=== PATIENT | female | born 1940 | race Caucasian/White ===

== ENCOUNTER → 2016-12-08 | Outpatient (CLI) | payer MEDICARE, BC ==
--- NOTE | 2016-12-08 10:33 | KCIC ---
DATE: 12/08/2016 EXAM: MAMMO FELICITAS SCREENING BILATERAL HISTORY: Routine screening COMPARISON: 12/08/2015 This study was interpreted with the benefit of Computerized Aided Detection (CAD). The breast parenchyma is heterogeneously dense, which could reduce sensitivity of mammography. Breast parenchyma level C. FINDINGS: 2-D and 3-D tomosynthesis imaging was performed in CC and MLO projections. No new or enlarging breast densities are seen. Scattered benign type calcifications are again noted. No suspicious microcalcifications have developed. IMPRESSION: Stable mammograms without evidence of malignancy. BI-RADS CATEGORY: 2 BENIGN FINDING(S) RECOMMENDED FOLLOW-UP: 12M 12 MONTH FOLLOW-UP PQRS compliance statement: Patient information was entered into a reminder system with a target due date for the next mammogram. Mammography is a sensitive method for finding small breast cancers, but it does not detect them all and is not a substitute for careful clinical examination. A negative mammogram does not negate a clinically suspicious finding and should not result in delay in biopsying a clinically suspicious abnormality. "Our facility is accredited by the [employer] Mammography Program."
== END | disposition home or self-care (01) ==
LOC: KCIC MAMMO 07:55
PROVIDERS: ATTEND Internal Medicine
DX: Z12.31 Encounter for screening mammogram for malignant neoplasm of breast (principal)
CPT/HCPCS: 77063; G0202; 77067

== ENCOUNTER → 2017-12-19 | Outpatient (CLI) | payer MEDICARE, BC ==
--- NOTE | 2017-12-19 17:14 | KCIC ---
Bilateral digital screening mammograms with 3-D tomosynthesis: Reason for examination: Routine screening. Comparison is made to previous studies dated back to 11/14/2014. Bilateral mammograms in CC and oblique projections were obtained with 2-D imaging and 3-D tomosynthesis imaging on a Siemens Inspiration unit and reviewed on the workstation. Interpretation was made with the benefit of CAD. The skin and nipples show no abnormalities. No abnormal axillary lymph nodes are seen. The breast parenchyma is heterogeneously dense. (Breast density: Category C.) There has been a decrease in size of the small nodular density seen centrally in the right breast on oblique view. There are no new no dominant masses, suspicious calcifications or architectural distortion. Benign calcifications are present. Impression: No evidence of malignancy. Recommend routine screening. Your patient's mammogram demonstrates that she has dense breast tissue (breast density category C or D), which could hide abnormalities, and if she has other risk factors for breast cancer that have been identified, she might benefit from supplemental screening tests that may be suggested by you as her ordering physician. Dense breast tissue, in and of itself, is a relatively common condition. Therefore, this information is not provided to cause undue concern, but rather to raise your awareness and to promote discussion with your patient regarding the presence of other risk factors, in addition to dense breast tissue. Your patient's mammography results will be sent to her. BI-RAD Category 2: Benign. "Our facility is accredited by the [employer] Mammography [employer]." This patient's information has been entered into a reminder system for the patient to be notified with the results of her examination and a target date for the next mammogram. Electronically signed by: Goldie Mayo MD (12/19/2017 5:10 PM) [facility]
== END | disposition home or self-care (01) ==
LOC: KCIC MAMMO 10:24
PROVIDERS: ATTEND Internal Medicine
DX: Z12.31 Encounter for screening mammogram for malignant neoplasm of breast (principal)
CPT/HCPCS: 77063; 77067

== ENCOUNTER → 2019-03-12 | Outpatient (CLI) | payer MEDICARE, BC ==
--- NOTE | 2019-03-12 16:18 | RAD ---
EXAM: BILATERAL DIGITAL 3D SCREENING MAMMOGRAPHY. HISTORY: Routine mammographic screening. TECHNIQUE: Bilateral digital 3D and tomographic images were obtained in CC and MLO projections. Computer-aided detection was applied. COMPARISON: 12/19/2017, 12/08/2016. COMPOSITION: C. The breasts are heterogeneously dense, which may obscure small masses. FINDINGS: There is a new mostly obscured nodule superiorly and laterally on the right. See annotations. Scattered coarse calcifications bilaterally are benign. There are no suspicious findings on the left. BI-RADS CATEGORY 0: Incomplete--Needs Additional Imaging Evaluation. RECOMMENDATION: 1. Spot compression and sonography of the new nodule superolaterally on the right. Electronically signed by: Jennifer Simpson MD (03/12/2019 4:15 PM) [id number]
== END | disposition home or self-care (01) ==
LOC: MAMMO 12:47
PROVIDERS: ATTEND Internal Medicine
DX: Z12.31 Encounter for screening mammogram for malignant neoplasm of breast (principal); N63.10 Unspecified lump in the right breast, unspecified quadrant; N64.89 Other specified disorders of breast
CPT/HCPCS: 77063; 77067

== ENCOUNTER → 2019-03-22 | Outpatient (CLI) | payer MEDICARE, BC ==
--- NOTE | 2019-03-22 11:03 | RAD ---
Examination: 1. Right diagnostic mammogram. 2. Right targeted breast ultrasound. INDICATION: 79-year-old woman recalled from screening for nodularity in the upper-outer right breast. COMPARISON: Mammograms of November 14, 2014, December 08, 2016, and March 12, 2019 TECHNIQUE: Spot compression views of the right breast in the CC and MLO projections were obtained with 2-D technique. Thereafter, targeted ultrasound of the upper-outer quadrant right breast was pursued. FINDINGS: Heterogeneously dense breast parenchyma. Nodular parenchymal pattern compatible benign cystic change, showing a waxing and waning pattern over time. The nodule identified on screening in the upper outer posterior right breast, obscured by dense breast tissue persists with additional imaging. On targeted ultrasound of the upper-outer quadrant right breast, a sonographically benign 8 mm cyst at the 10:00 position 4 cm from the nipple is identified that likely correlates with the nodularity recalled from screening. Additional mildly complicated cysts are identified smaller in size in the upper outer quadrant right breast including at the 11:00 position 7 cm from the nipple. No suspicious sonographic findings are identified. IMPRESSION: Benign findings on right diagnostic mammogram and targeted right breast ultrasound. No evidence of malignancy. Recommend patient return to routine screening next due in one year. Discussed with patient. BI-RADS Category 2 Benign findings Recommend return to screening. Patient entered into a reminder system with target due date for next mammogram.
== END | disposition home or self-care (01) ==
LOC: MAMMO 09:04
PROVIDERS: ATTEND Internal Medicine
DX: N60.01 Solitary cyst of right breast (principal)
CPT/HCPCS: 76641; 77065

== ENCOUNTER → 2020-04-07 | Outpatient (CLI) | payer MEDICARE, BC ==
--- NOTE | 2020-04-10 09:51 | RAD ---
DATE: 04/07/2020 2:06 PM EXAM: DIGITAL SCREEN BILAT W/CAD HISTORY: Screening COMPARISON: 03/12/2019, 12/19/2017 Bilateral CC and MLO views of the breasts were performed. Bilateral breast tomosynthesis was performed in CC and MLO projections. This study was interpreted with the benefit of Computerized Aided Detection (CAD). FINDINGS: Breast Density: SCATTERED The breast parenchyma shows scattered fibroglandular densities. Breast parenchyma level B No suspicious masses, microcalcifications or architectural distortion is present to suggest malignancy in either breast. The visualized axillae are unremarkable. IMPRESSION: No mammographic evidence of malignancy. BI-RADS CATEGORY: 1 NEGATIVE RECOMMENDED FOLLOW-UP: 12M 12 MONTH FOLLOW-UP Annual screening mammography is recommended, unless clinically indicated sooner based on symptoms or change in physical exam. PQRS compliance statement: Patient information was entered into a reminder system with a target due date for the next mammogram. Mammography is a sensitive method for finding small breast cancers, but it does not detect them all and is not a substitute for careful clinical examination. A negative mammogram does not negate a clinically suspicious finding and should not result in delay in biopsying a clinically suspicious abnormality. "Our facility is accredited by the [employer] Mammography [employer]."
== END ==
LOC: MAMMO 14:07
PROVIDERS: ATTEND Internal Medicine
DX: Z12.31 Encounter for screening mammogram for malignant neoplasm of breast (principal)
CPT/HCPCS: 77067

== ENCOUNTER → 2020-05-26 | Outpatient (CLI) | payer MEDICARE, BC ==
--- NOTE | 2020-05-26 17:33 | KCIC ---
EXAM: Chest, 2 views. HISTORY: Chest pain. COMPARISON: None. FINDINGS: 2 views of the chest are obtained. There is lingular and left lower lobe atelectasis or sca rring. There is a large hiatal hernia. The heart is normal in size. There is no pleural effusion or p neumothorax. There is no consolidation. There is thoracolumbar scoliosis. IMPRESSION: No acute pulmonary finding. Electronically signed by: Mariola Mendez MD (05/26/2020 5:31 PM) [facility]
--- NOTE | 2020-05-27 08:33 | KCIC ---
EXAM: XR RIBS 2 VIEWS LT 05/26/2020 12:47 PM CLINICAL INDICATION: Pleuritic chest pain, fell on rock one month COMPARISON: None TECHNIQUE: AP and oblique views of the left ribs. The heart appears enlarged There is a left basilar opacities and possible small left pleural effusion . No pneumothorax. There is moderate thoracolumbar scoliosis. Suspect large hiatal hernia. IMPRESSION: 1. No acute fracture. 2. Left basilar opacities and/or small pleural effusion. 3. Suspect large hiatal hernia. Electronically signed by: Ashley Ribeiro MD (05/27/2020 8:31 AM) [id number]
== END ==
LOC: KCIC 12:40
PROVIDERS: ATTEND Internal Medicine
DX: R07.81 Pleurodynia (principal); M41.85 Other forms of scoliosis, thoracolumbar region
CPT/HCPCS: 71046; 71100

== ENCOUNTER → 2020-07-31 | Outpatient (CLI) | payer MEDICARE, BC ==
[~2020-07-31] MED LIST: REGADENOSON 0.4 MG/5 ML DISP.SYRIN. IV ONE
--- NOTE | 2020-08-01 10:08 | CARD ---
MR#: [id number] Date of Study: 07/31/2020 Ordering Physician: ASHLEY MOSS, Referring Physician: ASHLEY MOSS, Tech: Shahla Vyas, [facility] APPROVED REPORT EXAM: Two-dimensional and M-mode echocardiogram with Doppler and color Doppler. Other Information Quality : AverageHR: 70bpm INDICATION Dyspnea RISK FACTORS Hypertension 2D DIMENSIONS RVDd2.3 (2.9-3.5cm)Left Atrium(2D)3.2 (1.6-4.0cm) IVSd0.8 (0.7-1.1cm)Aortic Root(2D)2.7 (2.0-3.7cm) LVDd4.0 (3.9-5.9cm)LVOT Diameter2.1 (1.8-2.4cm) PWd0.8 (0.7-1.1cm)LVDs2.3 (2.5-4.0cm) FS (%) 42.9 %SV51.5 ml Aortic Valve AoV Peak Zhou.120.2cm/sAoV VTI29.4cm AO Peak GR.5.8mmHgLVOT Peak Zhou.113.9cm/s LVOT VTI 27.66cmAO Mean GR.3mmHg DYLON (VMAX)2.83kl7HZV (VTI)3.24cm2 Mitral Valve MV E Fbbztktg915.1cm/sMV E Peak Gr.164mmHg MV DECEL HMWA201esMJ A Kdagobeo90.3cm/s MV HDT18cjM/A Ratio1.4 MVA (PHT)4.26cm2 TDI E/Lateral E'17.1E/Medial E'15.3 Pulmonary Valve PV Peak Askerobb16.2cm/sPV Peak Grad.3mmHg Tricuspid Valve TR P. Xwrgcblp486tx/sRAP SHSJVCUJ7kqWn TR Peak Gr.60afUeHJYJ73qgQz Pulmonary Vein S1 Uijijmyy73.6cm/sD2 Tinlivgx36.4cm/s PVa dlmuggjq961zloj LEFT VENTRICLE The left ventricle is normal size. There is normal left ventricular wall thickness. The left ventricu lar systolic function is normal and the ejection fraction is within normal range. The Ejection Fracti on is 55-60%. There is normal LV segmental wall motion. Transmitral Doppler flow pattern is Grade II- pseudonormal filling dynamics. RIGHT VENTRICLE The right ventricle is normal size. There is normal right ventricular wall thickness. The right ventr icular systolic function is normal. ATRIA The left atrium size is normal. The right atrium size is normal. The interatrial septum is intact wit h no evidence for an atrial septal defect or patent foramen ovale as noted on 2-D or Doppler imaging. AORTIC VALVE The aortic valve is normal in structure and function. Doppler and Color Flow revealed no significant aortic regurgitation. There is no significant aortic valvular stenosis. Calculated aortic valve area is 3.04 cm2 with maximum pressure gradient of 8 mmHg and mean pressure gradient of 4 mmHg. MITRAL VALVE The mitral valve is normal in structure and function. There is no evidence of mitral valve prolapse. There is no mitral valve stenosis. Doppler and Color-flow revealed trace mitral regurgitation. TRICUSPID VALVE The tricuspid valve is normal in structure and function. Doppler and Color Flow revealed trace tricus pid regurgitation with an estimated PAP of 35 mmHg. There is no tricuspid valve stenosis. PULMONIC VALVE The pulmonic valve is not well visualized. Doppler and Color Flow revealed trace pulmonic valvular re gurgitation. GREAT VESSELS The aortic root is normal in size. The IVC is normal in size and collapses >50% with inspiration. PERICARDIAL EFFUSION There is no evidence of significant pericardial effusion. Critical Notification Critical Value: No <Conclusion> The left ventricle is normal size. The left ventricular systolic function is normal and the ejection fraction is within normal range. The Ejection Fraction is 55-60%. Doppler and Color Flow revealed no significant aortic regurgitation. There is no significant aortic valvular stenosis. Doppler and Color-flow revealed trace mitral regurgitation. Doppler and Color Flow revealed trace tricuspid regurgitation with an estimated PAP of 35 mmHg. Signed by : Lon Perez MD Electronically Approved : 08/01/2020 10:07:48
--- NOTE | 2020-08-01 10:34 | RAD ---
MR#: [id number] Date of Study: 07/31/2020 Ordering Physician: ASHLEY MOSS Referring Physician: JENNIFER HWANG Tech: RT Jorge (R) (N) APPROVED REPORT Test Type: Pharmacological Stress Nurse/Tech: Mabel Pena RN Test Indications: dyspnea on exertion Cardiac History: HTN Medications: See Electronic Medical Record Medical History: See Electronic Medical Record Resting ECG: SR Resting Heart Rate: 58 bpm Resting Blood Pressure: 159/61mmHg Pretest Chest Pain: None Nurse/Tech Notes Lungs CTA, S1S2 Consent: The procedure was explained to the patient in lay terms. Informed consent was witnessed. Judd eout was entered into [employer]. History and Stress Test performed by RT Remy (R) (N) Pharm. Details Pharmacologic stress testing was performed using 0.4mg per 5ml of regadenoson given intravenously ove r 7-10 seconds. Stress Symptoms No chest pain or symptoms. POST EXERCISE Reason for Termination: Infusion complete Max HR: 140 bpm Max Blood Pressure: 142/54mmHg Blood Pressure response to exercise: Normal blood pressure response during stress. Heart Rate response to exercise: normal response Chest Pain: No. Arrhythmia: No. ST Change: No. INTERPRETATION Stress EKG Conclusion: The resting EKG shows a sinus rhythm. The stress EKG shows no significant changes from baseline. No EKG evidence of stress-induced ischemia. Imaging Protocol IMAGE PROTOCOL: Rest Tc-99m/stress Tc-99m 1 day Rest: Stress: Viability: Radiopharm.Tc99m KcavipnckMj15h Sestamibi Ihhs25eGb 32mCi Duration 15min. 15min. Img Date 07/31/2020 07/31/2020 Inj-Img Ckcg96srt. 60min. Rest Admin Site:IV - Left AntecubitalAdministrator:RT Jorge (R)(N) Stress Admin Site: IV - Right AntecubitalAdministrator: RT Jorge (R)(N) STRESS DATA End Diast. Vol.32.0mlAv. Heart Rate92.0bpm LVEDV index BSA19.0mlCardiac Output0.0L/min End Syst. Vol.2.0mlCO Index BSA0.0L/min LVESV index BSA1.0mlMyocardial Mass70.0g Eject. Xoxgkqew92.0% Stress Scores Regional WT0.00Summed WT0.00 Regional WM0.00Summed WM1.00 LV Perfusion The stress scans showed no significant defects. The rest scans showed no significant defects. Nuclear imaging shows no reversible ischemia or infarct. Wall Motion LV systolic function is normal with an ejection fraction of greater than 70%. LV Perf. Quant 17 Seg. SSS7.00 17 Seg. SRS8.00 17 Seg. SDS3.00 Stress Defect Extent (% LAD)0.00Rest Defect Extent (% LAD)4.40Rev. Defect Extent (% LAD)0.00 Stress Defect Extent (% LCX) 65.00Rest Defect Extent (% LCX)32.50Rev. Defect Extent (% LCX)42.50 Stress Defect Extent (% RCA)0.00Rest Defect Extent (% RCA)1.10Rev. Defect Extent (% RCA)0.00 Stress Defect Extent (% NADER)12.60Rest Defect Extent (% NADER)11.70Rev. Defect Extent (% NADER)7.40 Conclusion 1. No EKG evidence of stress-induced ischemia. 2. Nuclear imaging shows no reversible ischemia or infarct. 3. Normal LV systolic function with an ejection fraction of greater than 70%. 4. Moderately low risk Lexiscan nuclear stress test. Signed by : Lon Perez MD Electronically Approved : 08/01/2020 10:34:24
== END ==
LOC: NM 08:16
PROVIDERS: ATTEND Internal Medicine Cardiovascular Disease
DX: I10 Essential (primary) hypertension (principal); R06.09 Other forms of dyspnea
CPT/HCPCS: 78452; 93017; 93306; A9500; J2785

== ENCOUNTER → 2021-05-12 | Outpatient (CLI) | payer BC ==
--- NOTE | 2021-05-12 12:49 | KCIC ---
Bilateral digital screening mammograms with 3-D tomosynthesis: Reason for examination: Routine screening. Comparison is made to previous studies dated back to 12/08/2016. Bilateral mammograms in CC and oblique projections were obtained with 2-D imaging and 3-D tomosynthes is imaging on a Siemens Inspiration unit and reviewed on the workstation. Interpretation was made wit h the benefit of CAD. The skin and nipples show no abnormalities. No abnormal axillary lymph nodes are seen. The breast par enchyma is heterogeneously dense. (Breast density: Category C.) There are no new dominant masses, suzanne picious calcifications or architectural distortion. Benign calcifications are present. Impression: No evidence of malignancy. Recommend routine screening. Your patient's mammogram demonstrates that she has dense breast tissue (breast density category C or D), which could hide abnormalities, and if she has other risk factors for breast cancer that have bee n identified, she might benefit from supplemental screening tests that may be suggested by you as her ordering physician. Dense breast tissue, in and of itself, is a relatively common condition. Therefo re, this information is not provided to cause undue concern, but rather to raise your awareness and t o promote discussion with your patient regarding the presence of other risk factors, in addition to d ense breast tissue. Your patient's mammography results will be sent to her. BI-RAD Category 2: Benign. "Our facility is accredited by the [employer] Mammography Program." This patient's information has been entered into a reminder system for the patient to be notified wit h the results of her examination and a target date for the next mammogram. Electronically signed by: Goldie Mayo MD (05/12/2021 12:47 PM) [email or web address]
== END ==
LOC: KCIC MAMMO 10:15
PROVIDERS: ATTEND Internal Medicine
DX: Z12.31 Encounter for screening mammogram for malignant neoplasm of breast (principal)
CPT/HCPCS: 77063; 77067